=== PATIENT | male | born 1960 | race Caucasian/White ===

== ENCOUNTER 2017-03-05 09:18 | Emergency (ER) | payer BC ==
--- NOTE | 2017-03-05 09:51 | UC ---
Complaint Male HPI - HPI Summary HPI Summary: Patient states he has sores in his "private area.." He states they are swollen and red, denies any discharge from them, they started Tuesday, and have been getting worse. Patient has been having unprotected intercourse with gf. HE states no new sexual partners and no previous STI. His GF thought it was fungal and has been applying topical creams. now there is are multiple lesions at the head / of penis and he is uncircumcised so it has started to macerate. his gf has a history of cold sores but no oral sex in 1 year. no discharge from penis. he is worried about HSV at this time . has had some lesions that are raised and tender [ End ] - History of Current Complaint Chief Complaint: UCSkin Stated Complaint: PERSONAL Time Seen by Provider: 03/05/17 09:45 Hx Obtained From: Patient Onset/Duration: Sudden Onset Timing: Constant Severity Initially: Mild Severity Currently: Moderate Location: Penis Alleviating Factor(s): Nothing Associated Signs And Symptoms: Positive: Negative - Risk Factors Testicular Torsion: Negative - Allergies/Home Medications Allergies/Adverse Reactions: Allergies Allergy/AdvReac Type Severity Reaction Status Date / Time No Known Allergies Allergy Verified 03/05/17 09:31 PMH/Surg Hx/FS Hx/Imm Hx Previously Healthy: Yes Endocrine History Of: Reports: Dyslipidemia Cardiovascular History Of: Denies: Cardiac Disorders, Hypertension, Pacemaker/ICD, Myocardial Infarction , Congestive Heart Failure, Atrial Fibrillation, Deep Vein Thrombosis, Bleeding Disorders Respiratory History Of: Denies: COPD, Asthma, Bronchitis, Pneumonia, Pulmonary Embolism GI/ History Of: Denies: Gastroesophageal Reflux, Ulcer, Gastrointestinal Bleed, Gall Bladder Disease, Kidney Stones, Diverticulitis, Renal Disease, Urosepsis Neurological History Of: Denies: TIA, CVA, Dementia, Seizures, Migraine Psychological History Of: Denies: Anxiety, Depression, Bipolar Disorder, Schizophrenia, Post Traumatic Stress Disorder Cancer History Of: Denies: Lung Cancer, Colorectal Cancer, Breast Cancer, Prostate Cancer, Cervical Cancer - Surgical History Surgical History: Yes Surgery Procedure, Year, and Place: left hand surgery - Family History Known Family History: Positive: None Negative: Blood Disorder - Social History Occupation: Employed Full-time Lives: With Family Alcohol Use: Daily Alcohol Amount: wine daily Substance Use Type: None Smoking Status (MU): Current Some Day Smoker Type: Cigarettes Amount Used/How Often: 5-6 per day Review of Systems Constitutional: Negative Skin: Negative Eyes: Negative ENT: Negative Respiratory: Negative Cardiovascular: Negative Gastrointestinal: Negative Genitourinary: Other - penile lesion Motor: Negative Neurovascular: Negative Musculoskeletal: Negative Neurological: Negative Psychological: Negative All Other Systems Reviewed And Are Negative: Yes Physical Exam Triage Information Reviewed: Yes Appearance: Well-Appearing, No Pain Distress, Well-Nourished Vital Signs: Initial Vital Signs Temp 98.9 F 03/05/17 09:21 Pulse 88 03/05/17 09:21 Resp 17 03/05/17 09:21 BP 168/107 03/05/17 09:21 Pulse Ox 98 03/05/17 09:21 Vital Signs Reviewed: Yes Eye Exam: Normal ENT Exam: Normal Dental Exam: Normal Neck exam: Normal Neck: Positive: 1 Respiratory Exam: Normal Cardiovascular Exam: Normal Musculoskeletal Exam: Normal Neurological Exam: Normal Psychological Exam: Normal Skin Exam: Normal Complaint Male Course/Dx - Course Course Of Treatment: Multiple types of lesions on the glans, shaft and under the undercicumcised area. he is a laboerer outside and wears tigtht pans, concern for fungal infection, also his gf with history of cold sores on mouth ( no oral sex for > 1 year ) but with concern will have full panel and treat for fungal and viral etiology - Differential Dx/Diagnosis Differential Diagnosis/HQI/PQRI: Urinary Tract Infection Provider Diagnoses: Penile lesions infectious unspecified Discharge - Discharge Plan Condition: Good Disposition: HOME Prescriptions: Fluconazole [Diflucan 150 MG (NF)] 150 mg PO ONCE #1 tab ValACYclovir (*) [Valtrex 1 GM(*)] 1 gm PO TID #15 tab Patient Education Materials: Skin Yeast Infection (ED), Hypertension (ED) Referrals: Larry Vasquez MD [Primary Care Provider] - 3 Days Additional Instructions: As we discussed your complaints today are potentially a yeast infection but we will screen for other causes and also treat with anti viral medication . You are also being screened for sexually transmitted diseases at this time Images Perineum Male: 1 - vesicular lesions 2 - vesicluar lesions 3 - macerated indurated lesion with white discharge present 4 - scattered macular erythematous lesions on the penis with is not circumcised
[2017-03-05 11:02] VITALS: BP 164/108
[2017-03-07 11:21] LABS: Syphilis Index < 0.1 Index
== END 2017-03-05 11:00 | disposition home or self-care (01) ==
LOC: UCCORT 09:18
DX: L98.9 Disorder of the skin and subcutaneous tissue, unspecified (principal); E78.5 Hyperlipidemia, unspecified; Z72.0 Tobacco use; Z11.4 Encounter for screening for human immunodeficiency virus [HIV]
CPT/HCPCS: 36415; 86592; 86694; 86695; 86696; 86703; 86803; 87491; 87529; 87591; 87661; 87798; 99212; G0463

== ENCOUNTER 2017-05-23 08:08 | Emergency (ER) | payer BC ==
[2017-05-23 08:55] VITALS: BP 123/99
--- NOTE | 2017-05-23 09:07 | UC ---
Knee Pain HPI - HPI Summary HPI Summary: 56 yo male with red/swollen/warm left knee x days no fever some chills was work on knees over weekend remote hx of MRSA - History of Current Complaint Chief Complaint: UCLowerExtremity Stated Complaint: LEFT KNEE PAIN Time Seen by Provider: 05/23/17 08:44 Hx Obtained From: Patient Onset/Duration: Gradual Onset, Lasting Days Severity Initially: Mild Severity Currently: Moderate Pain Intensity: 6 Pain Scale Used: 0-10 Numeric Character: Sharp, Aching Aggravating Factor(s): Movement, Weight Bearing Alleviating Factor(s): Rest Associated Signs And Symptoms: Positive: Swelling, Redness Able to Bear Weight: Yes - Risk Factors Septic Arthritis Risk Factor: Negative Gout Risk Factor: Age ^ 40, Male, HTN, Hyperlipidema - Allergies/Home Medications Allergies/Adverse Reactions: Allergies Allergy/AdvReac Type Severity Reaction Status Date / Time No Known Allergies Allergy Verified 05/23/17 08:33 Home Medications: Home Medications Acetaminophen TAB* [Tylenol TAB*] 650 mg PO Q4H PRN 05/23/17 [History Confirmed 05/23/17] Aspirin [Aspirin Adult Low Dose 81 MG] 81 mg PO DAILY 05/23/17 [History Confirmed 05/23/17] Chlorthalidone TAB* [Hygroton TAB*] 25 mg PO DAILY 05/23/17 [History Confirmed 05/23/17] [place]-3 Fatty Acids [Fish Oil] 1,000 mg PO DAILY 05/23/17 [History Confirmed ] Rosuvastatin Calcium 40 mg PO 05/23/17 [History] Vitamin B Complex CAP* [B Complex CAP*] 1 cap PO DAILY 05/23/17 [History Confirmed 05/23/17] PMH/Surg Hx/FS Hx/Imm Hx Previously Healthy: Yes Endocrine History: Dyslipidemia Cardiovascular History: Hypertension - Surgical History Surgical History: Yes Surgery Procedure, Year, and Place: left hand surgery - Family History Known Family History: Positive: Hypertension Negative: Blood Disorder - Social History Alcohol Use: Daily Alcohol Amount: wine daily Substance Use Type: None Smoking Status (MU): Light Every Day Tobacco Smoker Type: Cigarettes Amount Used/How Often: 5-6 per day Review of Systems Constitutional: Chills Skin: Negative Eyes: Negative ENT: Negative Respiratory: Negative Cardiovascular: Negative Gastrointestinal: Negative Genitourinary: Negative Motor: Negative Neurovascular: Negative Musculoskeletal: Arthralgia Neurological: Negative Psychological: Negative All Other Systems Reviewed And Are Negative: Yes Physical Exam Triage Information Reviewed: Yes Appearance: Well-Appearing, No Pain Distress, Well-Nourished Vital Signs: Initial Vital Signs Temp 98 F 05/23/17 08:38 Pulse 77 05/23/17 08:38 Resp 18 05/23/17 08:38 BP 123/99 05/23/17 08:38 Pulse Ox 98 05/23/17 08:38 Eyes: Positive: Conjunctiva Clear ENT: Positive: Hearing grossly normal. Negative: Nasal congestion, Nasal drainage, Trismus, Muffled/hoarse voice Neck: Positive: Supple, Nontender, No Lymphadenopathy Respiratory: Positive: Lungs clear, Normal breath sounds, No respiratory distress, No accessory muscle use Cardiovascular: Positive: RRR, No Murmur Musculoskeletal: Positive: Other: - seem image Neurological: Positive: Alert, Muscle Tone Normal Psychological Exam: Normal Skin Exam: Other - see image Knee Pain Course/Dx - Course Course Of Treatment: I am unable to determine if the swelling is prepatellar or due to a knee effusion. D/W Dr. Schwab ([facility]). Pt declines EMS transfer - Differential Dx/Diagnosis Provider Diagnoses: red/swollen left knee Discharge - Discharge Plan Condition: Stable Disposition: AGAINST MEDICAL ADVICE Images Front/Back of Body, Lg ([place]): 1 - red/swollen/tender,. unable to fully extend,. skin appears intact
== END 2017-05-23 09:05 | disposition left against medical advice (07) ==
LOC: UCCORT 08:08
DX: M79.89 Other specified soft tissue disorders (principal)
CPT/HCPCS: 99212; G0463